=== PATIENT | female | born 1970 | race Caucasian/White ===

== ENCOUNTER 2020-12-21 14:57 | Emergency (ER) | payer SELFPAY ==
--- OUTSIDE RECORDS SUMMARY | 2020-12-21 15:02 | XMS REPORT | Continuity of Care Document ---
:1970 Author Organization [facility] t Address [facility] Memo Rojas. [address] [place] [address] Care Team Providers Name Role Phone Charlie Whaley MD Primary Care Physician Kaelyn HARDY, S Attending Clinician Melissa Jones MD Attending Clinician Problems Condition Condition Condition Status Onset Resolution Last Treating Co mments Source Name Details Category Date Date Treatment Clinician Date Cataract, Cataract, Disease Active [facility] Allergies, Adverse Reactions, Alerts Allergy Allergy Status Severity Reaction(s) Onset Inactive Treating Comm ents Source Name Type Date Date Clinician Jesus Palomino Active Anaphylaxis, [facility] ne-Pseud ty to Palpitations 09-14 Juana kes - oephedri adverse , Other (See 00:00: M vane ne reaction Comments) 00 Madhu nguyễn s Social History Social Habit Start Date Stop Date Quantity Comments Source Sex Assigned At [facility] Tobacco use and 2018-04-11 2018-04-11 Never used [facility] - exposure 00:00:00 00:00:00 [facility] Alcohol intake 2018-04-11 2018-04-11 [facility] non-drinker of Medical Ce nter alcohol (finding) History of 2004-09-04 Current smoker [facility] es - tobacco use 00:00:00 Medical Madhu nguyễn Smoking Status Start Date Stop Date Source Former smoker 2018-04-11 00:00:00 2018-04-11 00:00:[address] [facility] Medications Ordered Filled Start Stop Current Ordering Indication Dosage Frequency Signature Comments Components Source Medication Medication Date Date Medication? Clinician (SIG) Name Name fexofenadin Yes 180mg QD Take [address] (CATY) 8-08 mg by [facility] - 180 MG 10:44: mouth Medical tablet 18 daily. Center DULoxetine Yes 20mg QD Take [address] (CYMBALTA) 8-08 by mouth [facility] - 20 MG 10:44: daily. Medical capsule 18 Center oxyCODONE-a Yes 1{tbl} Take [address] cetaminophe 8-08 tablet by [facility] es - n 10:44: mouth Medical (PERCOCET) 18 every 4 Center 5-325 mg (four) per tablet hours as needed for Pain. estradiol Yes 1mg QD Take [address] [address] (ESTRACE) 1 8-08 by mouth [facility] - MG tablet 10:44: daily. Medica l 18 Center omeprazole Yes 10mg QD Take [address] (PRILOSEC) 8-08 by [facility] - 10 MG 10:44: daily. Medical capsule 18 Center zolpidem Yes 10mg Take [address] (AMBIEN) 10 8-08 by mouth [facility] - mg tablet 10:44: every Medical 18 night as Center needed for Insomnia. acetaminoph Yes 500mg Take [address] en 8-08 mg by [facility] - (TYLENOL) 10:44: mouth Medical 500 MG 18 every 6 Center tablet (six) hours as needed for Pain. Procedures This patient has no known procedures. Plan of Care Planned Activity Planned Date Details Comments Source Future Scheduled 2020-05-[address] [facility] - Test 00:00:00 (#1) [code = [facility] INFLUENZA VACCINE (#1)] Future Scheduled 2018-09-[address] [facility] - Test 00:00:00 WELLNESS (YEAR 2 or Medical Center FIRST YEAR if no IPPE) [code = MEDICARE ANNUAL WELLNESS (YEAR 2 or FIRST YEAR if no IPPE)] Future Scheduled [address] [facility] Test 00:00:00 (procedure) [code = Medical Center 63164268] Future Scheduled [address] [facility] - Test 00:00:00 malignant neoplasm Medical C enter of cervix (procedure) [code = 448419224] Future Scheduled [address] [facility] - Test 00:00:00 malignant neoplasm Medical C enter of breast (procedure) [code = 099316848] Future Scheduled [address] [facility] - Test 00:00:00 malignant neoplasm Medical C enter of colon (procedure) [code = 956293072] Encounters Start End Encounter Admission Attending Care Care Encounter Source Date/Time Date/Time Type Type Clinicians Facility Department ID 2020-12-08 2020-12-08 Jenn ArtRUST [id number] 00:00:00 00:00:00 [facility] [id number] Surgical [id number] Specialti [id number] es [address] 2020-07-21 2020-07-21 [facility] [id number] 00:00:00 00:00:00 [facility] [id number] Surgical [id number] Specialti [id number] [address] 2020-06-19 2020-06-19 Jenn ArtRUST [id number] 00:00:00 00:00:00 [facility] [id number] Surgical [id number] Specialti [id number] es [address] 2020-05-20 2020-05-20 Jenn ArtRUST [id number] 00:00:00 00:00:00 [facility] [id number] Surgical [id number] Specialti [id number] es [address] 2020-04-22 2020-04-22 Jenn ArtRUST [id number] 00:00:00 00:00:00 [facility] [id number] Surgical [id number] Specialti [id number] es [address] 2020-03-18 2020-03-18 Jenn ArtRUST [id number] 00:00:00 00:00:00 [facility] [id number] Surgical [id number] Specialti [id number] es [address] 2020-02-17 2020-02-17 Jenn ArtRUST [id number] 00:00:00 00:00:00 [facility] [id number] Surgical [id number] Specialti [id number] es [address] 2020-01-20 2020-01-20 Jenn ArtRUST [id number] 00:00:00 00:00:00 [facility] [id number] Surgical [id number] Specialti [id number] es [address] 2019-12-20 2019-12-20 [facility] [id number] 00:00:00 00:00:00 [facility] [id number] Surgical [id number] Specialti [id number] es [address] 2019-11-19 2019-11-19 Jenn ArtRUST [id number] 00:00:00 00:00:00 [facility] [id number] Surgical [id number] Specialti [id number] es [address] 2019-10-23 2019-10-23 [facility] [id number] 00:00:00 00:00:00 [facility] [id number] Surgical [id number] Specialti [id number] es [address] 2019-10-09 2019-10-09 [facility] KarenRUST [id number] 15:12:43 16:01:03 [facility] [id number] Surgical [id number] Specialti [phone] [address] Results This patient has no known results.
--- NOTE | 2020-12-21 19:16 | ER ---
Nurse's Notes [facility] Name: Hui Maxwell Age: 50 yrs Sex: Female : 1970 Arrival Date: 12/21/2020 Time: 15:03 Bed Waiting Private MD: Mike Whaley T Diagnosis: Presentation: 12/21 15:09 Chief complaint: Patient states: 2nd covid shot received 12/12/20. 12/14 started to have ll1 severe lethargy, fever of 101, body aches since 12/14. Chest and back started hurting Monday, hurts more on L side. No cough. Coronavirus screen: Client denies travel out of the [place] in the last 14 days. fatigue, fever, headache, muscle pain, nausea, shaking with chills, shortness of breath, Client presents with at least one sign or symptom that may indicate coronavirus-19. Standard/surgical mask placed on the client. Ebola Screen: Patient denies travel to an Ebola-affected area in the 21 days before illness onset. Initial Sepsis Screen: Does the patient meet any 2 criteria? No. Patient's initial sepsis screen is negative. Does the patient have a suspected source of infection? No. Patient's initial sepsis screen is negative. Risk Assessment: Do you want to hurt yourself or someone else? Patient reports no desire to harm self or others. Onset of symptoms was December 14, 2020. 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 - Social history:: Smoking status: Patient denies any tobacco usage or history of. Vital Signs: 15:09 BP 151 / 96; Pulse 63; Resp 17; Temp 99.3; Pulse Ox 100% ; Weight 94.8 kg; Height 5 ft. ll1 7 in. (170.18 cm); Pain 5/10; 15:09 Body Mass Index 32.73 (94.80 kg, 170.18 cm) ll1 ED Course: 15:03 Patient arrived in ED. mr 15:04 Mike Whaley MD is Private Physician. mr 15:13 Triage completed. 1 15:14 Arm band placed on. 1 Administered Medications: No medications were administered Outcome: 19:15 Patient left the ED. 1 Signatures: Ericka Urbina mr Raysa Morin, RN RN [facility]
[2020-12-21 19:23] VITALS: BP 151/96; TEMP 99.3; O2SAT 100
== END 2020-12-21 19:15 | disposition left against medical advice (07) ==
LOC: ER 14:57
DX: Z53.21 Procedure and treatment not carried out due to patient leaving prior to being seen by health care provider (principal)
CPT/HCPCS: 99281

== ENCOUNTER 2021-12-11 15:36 | Emergency (ER) | payer OTHER ==
--- OUTSIDE RECORDS SUMMARY | 2021-12-11 15:41 | XMS REPORT | Continuity of Care Document ---
:1970 Author Organization [facility] t Address [address] [place] [address] Dr. Rojas. [address] [place] [address] Care Team Providers Name Role Phone Charlie Whaley Primary Care Physician Kaelyn HARDY, S Attending Clinician Doctor Unassigned, Name Attending Clinician Unavailable Karen HOROWITZ, L Attending Clinician Payers Payer Name Policy Type Policy Number Effective Date Expiration Date S ource [employer] MEDICARE ADV [id number] 2018 00:00:00 Problems Condition Condition Condition Status Onset Resolution Last Treating Co mments Source Name Details Category Date Date Treatment Clinician Date Obesity Obesity Disease Active 2018-09 Univers (BMI (BMI 0-07 ity of 30-39.9) 30-39.9) 00:00: [place] 00 Medical Branch Status Status Disease Active 2018-09 Univers post total post total 0-07 it y of [place] right t of right 00 Me dical hip hip Branch Primary Primary Disease Active Overview: Univ ers osteoarthr osteoarthr 05-23 [place] ity of itis of itis of 00:00: g of this [place] right hip right hip 00 note Medi kimberly might be Branch different from the original. Added automatic ally from request for surgery [id number] Allergies, Adverse Reactions, Alerts Allergy Allergy Status Severity Reaction(s) Onset Inactive Treating Comm ents Source Name Type Date Date Clinician LORATADI DRUG Active High Anaphylaxis Uni vers NE-PSEUD -11 ity of OEPHEDRI 00:00: [place] 00 Medical Branch Loratadi Propensi Active Palpitations Univers ne-Pseud ty to 09-14 ity of oephedri adverse 00:00: [place] ne reaction 00 Medical s Branch Social History Social Habit Start Date Stop Date Quantity Comments Source History SDIA University o f Alcohol Std [place] [facility] Drinks Branch History SDIA University o f Alcohol Binge [place] [facility] al Branch History [facility] University o f Alcohol Comment [place] [facility] ical Branch Alcohol intake 2019-10-09 2019-10-09 Lifetime University of 00:00:00 00:00:00 non-drinker [place] [facility] (finding) Branch Tobacco use and 2019-06-06 2019-06-06 Never used Universit y of exposure 00:00:00 00:00:00 [place] [facility] History SDOH 2019-06-06 2019-06-06 1 University o f Alcohol Frequency 00:00:00 00:00:00 [facility] edical [place] Sex Assigned At [birth year] Universit y of 00:00:00 00:00:00 [facility] Smoking Status Start Date Stop Date Source Never smoker [facility] Medical Branch Medications Ordered Filled Start Stop Current Ordering Indication Dosage Frequency Signature Comments Components Source Medication Medication Date Date Medication? Clinician (SIG) Name Name DICLOFENAC Yes [id number] TAKE ONE Univers 75 mg EC - (1) ity of tablet 00:00: TABLET(S) 00 BY MOUTH Medical TWICE A Branch DAY WITH FOOD. DICLOFENAC 2020-09 Yes [id number] TAKE ONE Univers 75 mg EC -14 (1) ity of tablet 00:00: TABLET(S) 00 BY MOUTH Medical TWICE A Branch DAY WITH FOOD. DICLOFENAC 2020-09- No [id number] TAKE ONE Univers 75 mg EC 2-14 09-14 (1) ity of tablet 00:00: 00:00 TABLET(S) [place] 00 :00 BY MOUTH Medical TWICE A Branch DAY WITH FOOD. DICLOFENAC 2020-09 Yes [id number] TAKE ONE Univers 75 mg EC - (1) ity of tablet 00:00: TABLET(S) [place] 00 BY MOUTH Medical TWICE A Branch DAY WITH FOOD. DICLOFENAC 2020-09- No [id number] TAKE ONE Univers 75 mg EC 1-10 12-14 [id number] (1) ity of tablet 00:00: 00:00 TABLET(S) [place] 00 :00 BY MOUTH Medical TWICE A Branch DAY WITH FOOD. DICLOFENAC 2020-09 Yes [id number] TAKE ONE Univers 75 mg EC 0-07 [id number] (1) ity of tablet 00:00: TABLET(S) [place] 00 BY MOUTH Medical TWICE A Branch DAY WITH FOOD. DICLOFENAC 2020-09- No [id number] TAKE ONE Univers 75 mg EC 0-07 11-10 00013 (1) ity of tablet 00:00: 00:00 TABLET(S) [place] 00 :00 BY MOUTH Medical TWICE A Branch DAY WITH FOOD. DICLOFENAC Yes [id number] TAKE ONE Univers 75 mg EC 9-10 [id number] (1) ity of tablet 00:00: TABLET(S) [place] 00 BY MOUTH Medical TWICE A Branch DAY WITH FOOD. DICLOFENAC Yes [id number] TAKE ONE Univers 75 mg EC 9-10 [id number] (1) ity of tablet 00:00: TABLET(S) [place] 00 BY MOUTH Medical TWICE A Branch DAY WITH FOOD. DICLOFENAC 2020- No [id number] TAKE ONE Univers 75 mg EC 9-10 10-07 [id number] (1) ity of tablet 00:00: 00:00 TABLET(S) [place] 00 :00 BY MOUTH Medical TWICE A Branch DAY WITH FOOD. DICLOFENAC 2020- No [id number] TAKE ONE Univers 75 mg EC 8-12 09-10 [id number] (1) ity of tablet 00:00: 00:00 TABLET(S) [place] 00 :00 BY MOUTH Medical TWICE A Branch DAY WITH FOOD. HYDROcodone 2020-0 Yes Univer s -acetaminop 1-29 ity of hen 10-325 00:00: [place] mg tablet 00 Medical Branch HYDROcodone 2020-0 Yes Univer s -acetaminop 1-29 ity of hen 10-325 00:00: [place] mg tablet 00 Medical Branch HYDROcodone 2020-0 Yes Univer s -acetaminop 1-29 ity of hen 10-325 00:00: [place] mg tablet 00 Medical Branch HYDROcodone 2020-0 Yes Univer s -acetaminop 1-29 ity of hen 10-325 00:00: [place] mg tablet 00 [facility] Branch HYDROcodone 2020-0 Yes Univer s -acetaminop 1-29 ity of hen 10-325 00:00: [place] mg tablet 00 Medical Branch HYDROcodone 2020-0 Yes Univer s -acetaminop 1-29 ity of hen 10-325 00:00: [place] mg tablet 00 Medical Branch oxyCODONE-a 2019-0 Yes Univer s cetaminophe 1-02 ity of n 7.5-325 00:00: [place] mg per 00 Medical tablet Branch oxyCODONE-a 2019-0 Yes Univer s cetaminophe 1-02 ity of n 7.5-325 00:00: [place] mg per 00 Medical tablet Branch oxyCODONE-a 2019-0 Yes Univer s cetaminophe 1-02 ity of n 7.5-325 00:00: [place] mg per 00 Medical tablet Branch oxyCODONE-a 2019-0 Yes Univer s cetaminophe 1-02 ity of n 7.5-325 00:00: [place] mg per 00 Medical tablet Branch oxyCODONE-a 2019-0 Yes Univer s cetaminophe 1-02 ity of n 7.5-325 00:00: [place] mg per 00 Medical tablet Branch oxyCODONE-a 2019-0 Yes Univer s cetaminophe 1-02 ity of n 7.5-325 00:00: [place] mg per 00 Medical tablet Branch montelukast 2018-09 Yes TAKE ONE Un yancy 10 mg 2-29 (1) ity of tablet 00:00: TABLET(S) BY MOUTH Medical EVERY Branch MORNING. montelukast 2018-09 Yes TAKE ONE Un yancy 10 mg 2-29 (1) ity of tablet 00:00: TABLET(S) BY MOUTH Medical EVERY Branch MORNING. montelukast 2018-09 Yes TAKE ONE Un yancy 10 mg 2-29 (1) ity of tablet 00:00: TABLET(S) BY MOUTH Medical EVERY Branch MORNING. montelukast 2018-09 Yes TAKE ONE Un yancy 10 mg 2-29 (1) ity of tablet 00:00: TABLET(S) BY MOUTH Medical EVERY Branch MORNING. montelukast 2018-09 Yes TAKE ONE Un yancy 10 mg 2-29 (1) ity of tablet 00:00: TABLET(S) BY MOUTH Medical EVERY Branch MORNING. montelukast 2018-09 Yes TAKE ONE Un yancy 10 mg 2-29 (1) ity of tablet 00:00: TABLET(S) BY MOUTH Medical EVERY Branch MORNING. cefUROXime 2018-09 Yes TAKE ONE Uni vers 250 mg 2-20 (1) ity of tablet 00:00: TABLET(S) BY MOUTH Medical TWICE A Branch DAY. cefUROXime 2018-09 Yes TAKE ONE Uni vers 250 mg 2-20 (1) ity of tablet 00:00: TABLET(S) BY MOUTH Medical TWICE A Branch DAY. cefUROXime 2018-09 Yes TAKE ONE Uni vers 250 mg 2-20 (1) ity of tablet 00:00: TABLET(S) BY MOUTH Medical TWICE A Branch DAY. cefUROXime 2018-09 Yes TAKE ONE Uni vers 250 mg 2-20 (1) ity of tablet 00:00: TABLET(S) BY MOUTH Medical TWICE A Branch DAY. cefUROXime 2018-09 Yes TAKE ONE Uni vers 250 mg 2-20 (1) ity of tablet 00:00: TABLET(S) BY MOUTH Medical TWICE A Branch DAY. cefUROXime 2018-09 Yes TAKE ONE Uni vers 250 mg 2-20 (1) ity of tablet 00:00: TABLET(S) BY MOUTH Medical TWICE A Branch DAY. oseltamivir 2018-09 Yes Univer s 75 mg 2-18 ity of capsule 00:00: [place] [facility] oseltamivir 2018- Yes Univer s 75 mg 2-18 ity of capsule 00:00: [place] [facility] oseltamivir 2018- Yes Univer s 75 mg 2-18 ity of capsule 00:00: [place] [facility] oseltamivir 2018- Yes Univer s 75 mg 2-18 ity of capsule 00:00: [place] [facility] oseltamivir 2018- Yes Univer s 75 mg 2-18 ity of capsule 00:00: [place] [facility] oseltamivir 2018- Yes Univer s 75 mg 2-18 ity of capsule 00:00: [place] [facility] carvediloL 2018- Yes Univers 6.25 mg 1-14 ity of tablet 00:00: [place] [facility] carvediloL 2018- Yes Univers 6.25 mg 1-14 ity of tablet 00:00: [place] 00 Medical Branch carvediloL 2018-09 Yes Univers 6.25 mg 1-14 ity of tablet 00:00: [place] [facility] carvediloL 2018-09 Yes Univers 6.25 mg 1-14 ity of tablet 00:00: [place] [facility] carvediloL 2018-09 Yes Univers 6.25 mg 1-14 ity of tablet 00:00: [place] [facility] carvediloL 2018-09 Yes Univers 6.25 mg 1-14 ity of tablet 00:00: [place] 00 Medical Branch zolpidem 10 2018-09 Yes 10mg Take 10 mg Univers mg tablet 0-23 by mouth ity of 18:16: at [place] [address] bedtime. Medical Branch zolpidem 10 2018-09 Yes 10mg Take 10 mg Univers mg tablet 0-23 by mouth ity of 13:16: at [place] [address] bedtime. Medical Branch zolpidem 10 2018-09 Yes 10mg Take 10 mg Univers mg tablet 0-23 by mouth ity of 13:16: at [place] [address] bedtime. Medical Branch zolpidem 10 2018-09 Yes 10mg Take 10 mg Univers mg tablet 0-23 by mouth ity of 13:16: at [place] [address] bedtime. Medical Branch zolpidem 10 2018-09 Yes 10mg Take 10 mg Univers mg tablet 0-23 by mouth ity of 13:16: at [place] [address] bedtime. Medical Branch zolpidem 10 2018-09 Yes 10mg Take 10 mg Univers mg tablet 0-23 by mouth ity of 13:16: at [place] [address] bedtime. Medical Branch acetaminoph 2018-09 Yes [id number] 2{tbl} Take 2 Univers en-codeine 0-08 6 tablets by ity of (TYLENOL-CO 00:00: mouth [place] DEINE #3) 00 every 4 Medical 300-30 mg (four) Branch tablet hours as needed for Pain (scale 4-6) or Pain (scale 7-10). acetaminoph 2018-09 Yes [id number] 2{tbl} Take 2 Univers en-codeine 0-08 6 tablets by ity of (TYLENOL-CO 00:00: mouth [place] DEINE #3) 00 every 4 Medical 300-30 mg (four) Branch tablet hours as needed for Pain (scale 4-6) or Pain (scale 7-10). acetaminoph 2018-09 Yes [id number] 2{tbl} Take 2 Univers en-codeine 0-08 6 tablets by ity of (TYLENOL-CO 00:00: mouth [place] DEINE #3) 00 every 4 Medical 300-30 mg (four) Branch tablet hours as needed for Pain (scale 4-6) or Pain (scale 7-10). acetaminoph 2018-09 Yes [id number] 2{tbl} Take 2 Univers en-codeine 0-08 6 tablets by ity of (TYLENOL-CO 00:00: mouth [place] DEINE #3) 00 every 4 Medical 300-30 mg (four) Branch tablet hours as needed for Pain (scale 4-6) or Pain (scale 7-10). acetaminoph 2018-09 Yes [id number] 2{tbl} Take 2 Univers en-codeine 0-08 6 tablets by ity of (TYLENOL-CO 00:00: mouth [place] DEINE #3) 00 every 4 Medical 300-30 mg (four) Branch tablet hours as needed for Pain (scale 4-6) or Pain (scale 7-10). acetaminoph 2018-09 Yes [id number] 2{tbl} Take 2 Univers en-codeine 0-08 6 tablets by ity of (TYLENOL-CO 00:00: mouth [place] DEINE #3) 00 every 4 Medical 300-30 mg (four) Branch tablet hours as needed for Pain (scale 4-6) or Pain (scale 7-10). omeprazole 2019-0 Yes 40mg Take 40 mg U nivers 40 mg 9-23 by mouth ity of capsule 00:00: daily. [address] omeprazole 2019-0 Yes 40mg Take 40 mg U nivers 40 mg 9-23 by mouth ity of capsule 00:00: daily. [address] omeprazole 2019-0 Yes 40mg Take 40 mg U nivers 40 mg 9-23 by mouth ity of capsule 00:00: daily. [address] omeprazole 2019-0 Yes 40mg Take 40 mg U nivers 40 mg 9-23 by mouth ity of capsule 00:00: daily. [address] omeprazole 2019-0 Yes 40mg Take 40 mg U nivers 40 mg 9-23 by mouth ity of capsule 00:00: daily. [place] 00 Medical Branch omeprazole 2019-0 Yes 40mg Take 40 mg U nivers 40 mg 9-23 by mouth ity of capsule 00:00: daily. [place] [facility] carvedilol 2019-0 Yes 12.5mg Take 12.5 Univers 12.5 mg 9-11 mg by ity of tablet 00:00: mouth 2 [place] (two) Medical times Branch daily. carvedilol 2019-0 Yes 12.5mg Take 12.5 Univers 12.5 mg 9-11 mg by ity of tablet 00:00: mouth 2 [place] (two) Medical times Branch daily. carvedilol 2019-0 Yes 12.5mg Take 12.5 Univers 12.5 mg 9-11 mg by ity of tablet 00:00: mouth 2 [place] (two) Medical times Branch daily. carvedilol 2019-0 Yes 12.5mg Take 12.5 Univers 12.5 mg 9-11 mg by ity of tablet 00:00: mouth 2 [place] (two) Medical times Branch daily. carvedilol 2019-0 Yes 12.5mg Take 12.5 Univers 12.5 mg 9-11 mg by ity of tablet 00:00: mouth 2 [place] (two) Medical times Branch daily. carvedilol 2019-0 Yes 12.5mg Take 12.5 Univers 12.5 mg 9-11 mg by ity of tablet 00:00: mouth 2 [place] (two) Medical times Branch daily. DULoxetine 2019-0 Yes 30mg Take 30 mg U nivers 30 mg 9-06 by mouth 2 ity of capsule 00:00: (two) [place] times Medical daily. Branch DULoxetine 2019-0 Yes 30mg Take 30 mg U nivers 30 mg 9-06 by mouth 2 ity of capsule 00:00: (two) [place] times Medical daily. Branch DULoxetine 2019-0 Yes 30mg Take 30 mg U nivers 30 mg 9-06 by mouth 2 ity of capsule 00:00: (two) [place] times Medical daily. Branch DULoxetine 2019-0 Yes 30mg Take 30 mg U nivers 30 mg 9-06 by mouth 2 ity of capsule 00:00: (two) [place] times Medical daily. Branch DULoxetine 2019-0 Yes 30mg Take 30 mg U nivers 30 mg 9-06 by mouth 2 ity of capsule 00:00: (two) [place] 00 times Medical daily. Branch DULoxetine 2019-0 Yes 30mg Take 30 mg U nivers 30 mg 9-06 by mouth 2 ity of capsule 00:00: (two) [place] 00 times Medical daily. Branch Immunizations Ordered Filled Immunization Date Status Comments [facility] e Immunization Name Name SARS-COV-2 COVID-19 2020-12-12 Completed Unive rsity of PFIZER VACCINE 00:00:00 [facility] SARS-COV-2 COVID-19 2020-12-12 Completed Unive rsity of PFIZER VACCINE 00:00:00 [facility] SARS-COV-2 COVID-19 2020-12-12 Completed Unive rsity of PFIZER VACCINE 00:00:00 [facility] SARS-COV-2 COVID-19 2020-12-12 Completed Unive rsity of PFIZER VACCINE 00:00:00 [facility] SARS-COV-2 COVID-19 2020-12-12 Completed Unive rsity of PFIZER VACCINE 00:00:00 [facility] SARS-COV-2 COVID-19 2020-12-12 Completed Unive rsity of PFIZER VACCINE 00:00:00 [facility] SARS-COV-2 COVID-19 2020-11-21 Completed Unive rsity of PFIZER VACCINE 00:00:00 [facility] SARS-COV-2 COVID-19 2020-11-21 Completed Unive rsity of PFIZER VACCINE 00:00:00 [facility] SARS-COV-2 COVID-19 2020-11-21 Completed Unive rsity of PFIZER VACCINE 00:00:00 [facility] SARS-COV-2 COVID-19 2020-11-21 Completed Unive rsity of PFIZER VACCINE 00:00:00 [facility] SARS-COV-2 COVID-19 2020-11-21 Completed Unive rsity of PFIZER VACCINE 00:00:00 [facility] SARS-COV-2 COVID-19 2020-11-21 Completed Unive rsity of PFIZER VACCINE 00:00:00 [facility] Procedures Procedure Date / Time Performing Clinician Source Performed MEDICATION CORRESPONDENCE 2021-05-31 05:01:00 Doctor Unassigned, [facility] [place] Medical Branch Encounters Start End Encounter Admission Attending Care Care Encounter Source Date/Time Date/Time Type Type Clinicians Facility Department ID 2021-09-14 2021-09-14 [facility] 1.2.840.114 [id number] Univers 00:00:00 00:00:00 [place] 350.1.13.10 it y of SURGICAL 4.2.7.2.686 Terry as SPECIALTI [id number] [place] dical ES 198 [facility] 2021-08-11 2021-08-11 [facility] 1.2.840.114 [id number] Univers 00:00:00 00:00:00 [place] 350.1.13.10 it y of SURGICAL 4.2.7.2.686 Terry as SPECIALTI [id number] [place] dical ES 198 [facility] 2021-07-11 2021-07-11 [facility] 1.2.840.114 [id number] Univers 00:00:00 00:00:00 [facility] [place] 350.1.13.10 it y of SURGICAL 4.2.7.2.686 Terry as SPECIALTI [id number] [place] dical ES 198 [facility] 2021-06-10 2021-06-10 [facility] 1.2.840.114 [id number] Univers 00:00:00 00:00:00 [facility] 350.1.13.10 it y of Surgical 4.2.7.2.686 Terry as Specialti [phone] [place] dical es 198 [facility] 2021-05-31 2021-05-31 Orders Doctor YASSINE 1.2.840.114 [id number] Univers 00:00:00 00:00:00 Only Unassigned, FELIC[place] 350.1.13.10 ity of [place] [facility] 4.2.7.2.686 Terry as [id number] [address] 2021-05-13 2021-05-13 [facility] 1.2.840.114 [id number] Univers 00:00:00 00:00:00 [facility] 350.1.13.10 it y of Surgical 4.2.7.2.686 Terry as Specialti [phone] [place] dical es 198 [facility] 2020-12-12 2020-12-12 Outpatient [facility] [id number] Univers 13:45:00 13:45:00 [facility] 2020-12-08 2020-12-08 [facility] 1.2.840.114 [id number] 00:00:00 00:00:00 [facility] 350.1.13.10 Surgical 4.2.7.2.686 Specialti [id number] es 198 [place] 2020-11-21 2020-11-21 Outpatient [facility] [id number] Univers 13:35:00 13:35:00 [place] [facility] 2020-07-21 2020-07-21 [facility] 1.2.840.114 [id number] 00:00:00 00:00:00 [facility] 350.1.13.10 Surgical 4.2.7.2.686 Specialti [id number] es 198 [place] 2020-06-19 2020-06-19 [facility] 1.2.840.114 [id number] 00:00:00 00:00:00 [facility] 350.1.13.10 Surgical 4.2.7.2.686 Specialti [id number] es 198 [place] 2020-05-20 2020-05-20 [facility]irsushila [facility] 1.2.840.114 [id number] 00:00:00 00:00:00 [facility] 350.1.13.10 Surgical 4.2.7.2.686 Specialti [id number] es 198 [place] 2020-04-22 2020-04-22 [facility] 1.2.840.114 [id number] 00:00:00 00:00:00 [facility] 350.1.13.10 Surgical 4.2.7.2.686 Specialti [id number] es 198 [place] 2020-03-18 2020-03-18 [facility] 1.2.840.114 [id number] 00:00:00 00:00:00 [facility] 350.1.13.10 Surgical 4.2.7.2.686 Specialti [id number] es 198 [place] 2020-02-17 2020-02-17 [facility] 1.2.840.114 [id number] 00:00:00 00:00:00 [facility] Health 350.1.13.10 Surgical 4.2.7.2.686 Specialti [id number] es 198 [place] 2020-01-20 2020-01-20 [facility] 1.2.840.114 [id number] 00:00:00 00:00:00 [facility] Health 350.1.13.10 Surgical 4.2.7.2.686 Specialti [id number] es 198 [place] 2019-12-20 2019-12-20 [facility] 1.2.840.114 [id number] 00:00:00 00:00:00 [facility] Health 350.1.13.10 Surgical 4.2.7.2.686 Specialti [id number] es 198 [place] 2019-11-19 2019-11-19 [facility] 1.2.840.114 [id number] 00:00:00 00:00:00 [facility] Health 350.1.13.10 Surgical 4.2.7.2.686 Specialti [id number] es 198 [place] 2019-10-23 2019-10-23 [facility] [id number] 00:00:00 00:00:00 [facility] 350.1.13.10 Surgical 4.2.7.2.686 Specialti [phone] es 198 [place] 2019-10-09 2019-10-09 [facility] [id number] 15:12:43 16:01:03 Visit [facility] Health 350.1.13.10 Surgical 4.2.7.2.686 Specialti [id number] es 198 [place] Results This patient has no known results.
[2021-12-11] MEDS ORDERED: MECLIZINE HCL 12.5 MG TAB ONE (16:32)
[2021-12-11] MEDS ORDERED: DIAZEPAM 10 MG/2 ML INJ SYRINGE ONE ×2 (16:32→19:39)
[2021-12-11] MEDS ORDERED: ONDANSETRON 4 MG/2 ML VIAL ONE (16:32)
[2021-12-11 16:34] LABS: Absolute Lymphocytes (CBC) 1.2 K/uL (0.7-4.9); Hematocrit 38.7 % (36.0-45.0); Lymphocytes % 19.3 % (15.3-44.8); MPV 8.1 fL (7.6-11.3); RBC Red Blood Cell Count 4.45 M/uL (3.86-4.86)
[2021-12-11 16:40] LABS: Protime INR 1.06
[2021-12-11 16:55] LABS: ALT/SGPT 34 U/L (12-78); AST/SGOT 21 U/L (15-37); Albumin 3.3 g/dL (3.4-5.0); Alkaline Phosphatase 109 U/L (45-117); BUN Blood Urea Nitrogen 9 mg/dL (7-18); Bicarbonate 25 mmol/L (21-32); Bilirubin Direct 0.2 mg/dL (0-0.2); Bilirubin Total 0.5 mg/dL (0.2-1.0); Glucose Level 94 mg/dL (74-106); Magnesium 1.9 mg/dL (1.8-2.4); NT PRO-BNP 321 pg/mL (<125); Potassium 3.7 mmol/L (3.5-5.1); Protein, Total 6.8 g/dL (6.4-8.2); Sodium Level 141 mmol/L (136-145); Troponin High Sensitivity 4.1 pg/mL (<58.9)
--- NOTE | 2021-12-11 17:06 | RAD REPORT ---
EXAM DESCRIPTION: Vickie Single View12/11/2021 4:44 pm CLINICAL HISTORY: Dizziness COMPARISON: 2016 FINDINGS: The lungs appear clear of acute infiltrate. The heart is normal size IMPRESSION: No acute abnormalities displayed
--- NOTE | 2021-12-11 18:07 | RAD REPORT ---
EXAM DESCRIPTION: CT - Head Brain Wo Cont - 12/11/2021 5:46 pm CLINICAL HISTORY: Headache COMPARISON: 2017 TECHNIQUE: Computed axial tomography of the head was obtained. IV contrast was not requested. All CT scans are performed using dose optimization technique as appropriate and may include automated exposure control or mA/KV adjustment according to patient size. FINDINGS: An intracranial bleed is not seen . The ventricles are normal in caliber. No significant hypodense areas within the brain No extra-axial fluid collection is noted. Fluid within the sinuses/ mastoids is not seen. Postsurgical changes left mastoid IMPRESSION: No acute intracranial abnormality is seen. If patient's symptoms persist MRI of the bra in would be recommended.
[2021-12-11] MEDS ORDERED: NA CHLORIDE 0.9% 1,000 ML ONE (19:36)
--- NOTE | 2021-12-11 20:00 | ER ---
Nurse's Notes [facility] Name: Hui Maxwell Age: 51 yrs Sex: Female : 1970 Arrival Date: 12/11/2021 Time: 15:41 Bed 5 Private MD: Diagnosis: Other peripheral vertigo Presentation: 12/11 15:46 Chief complaint: Patient states: "I have Meniere's disease and have had it for 30 ab2 years. This is the first bolivar in the last 10 years I have had a flare up this bad. I have a headache, im nauseated, my bones hurt, im dizzy.". Coronavirus screen: Vaccine status: Patient reports receiving the 2nd dose of the covid vaccine. Client denies travel out of the [place] in the last 14 days. At this time, the client does not indicate any symptoms associated with coronavirus-19. Ebola Screen: Patient negative for fever greater than or equal to 101.5 degrees Fahrenheit, and additional compatible Ebola Virus Disease symptoms Patient denies exposure to infectious person. Patient denies travel to an Ebola-affected area in the 21 days before illness onset. No symptoms or risks identified at this time. Initial Sepsis Screen: Does the patient meet any 2 criteria? No. Patient's initial sepsis screen is negative. Does the patient have a suspected source of infection? No. Patient's initial sepsis screen is negative. Risk Assessment: Do you want to hurt yourself or someone else? Patient reports no desire to harm self or others. Onset of symptoms is unknown. 15:46 Method Of Arrival: Ambulatory ab2 15:46 Acuity: CIARA 3 ab2 Triage Assessment: 15:48 Headache History: The patient has had previous headaches and this one is similar to ab2 previous episodes. General: Appears in no apparent distress. uncomfortable, Behavior is calm, cooperative, appropriate for age. Pain: Denies pain. Pain: Pain began 4 hours ago. Also complains of nausea. Neuro: Level of Consciousness is awake, alert, obeys commands, Oriented to person, place, time, situation, Appropriate for age Cheese Pancake Roller are equal bilaterally Moves all extremities. Gait is steady, Speech is normal, Reports dizziness, headache weakness. Cardiovascular: No deficits noted. Reports lightheadedness, nausea, Denies chest pain, Patient's skin is warm and dry. Respiratory: No deficits noted. Airway is patent Respiratory effort is even, unlabored, Respiratory pattern is regular, symmetrical. GI: Reports nausea. : No deficits noted. No signs and/or symptoms were reported regarding the genitourinary system. Derm: Skin is intact, Skin is pink, warm \\T\\ dry. Musculoskeletal: No deficits noted. No signs and/or symptoms reported regarding the musculoskeletal system. Historical: - Allergies: 15:46 Claritin; ab2 - PMHx: 15:46 menieres disease; non hodgkins lymphoma; ab2 - Immunization history:: Adult Immunizations up to date. - Social history:: Smoking status: Patient denies any tobacco usage or history of. Screenin:42 Abuse screen: Denies threats or abuse. Denies injuries from another. Nutritional ph screening: No deficits noted. Tuberculosis screening: No symptoms or risk factors identified. Fall Risk None identified. Assessment: 16:15 General: Appears in no apparent distress. Behavior is calm, cooperative, appropriate ph for age. Pain: Denies pain. Neuro: Level of Consciousness is awake, alert, obeys commands, Oriented to person, place, time, situation, Reports dizziness. Cardiovascular: Capillary refill < 3 seconds in bilateral fingers Patient's skin is warm and dry. Respiratory: Airway is patent Respiratory effort is even, unlabored. GI: Reports nausea, Patient currently denies abdominal pain, vomiting. Derm: Skin is intact, is healthy with good turgor, Skin is pink, warm \\T\\ dry. Musculoskeletal: Circulation, motion, and sensation intact. Range of motion: intact in all extremities. 17:30 Reassessment: Patient appears in no apparent distress at this time. Patient and/or ph family updated on plan of care and expected duration. Pain level reassessed. Patient is alert, oriented x 3, equal unlabored respirations, skin warm/dry/pink. 19:39 Reassessment: Patient appears in no apparent distress at this time. Patient and/or lg3 family updated on plan of care and expected duration. Pain level reassessed. Patient is alert, oriented x 3, equal unlabored respirations, skin warm/dry/pink. Patient states feeling better. Patient states symptoms have improved. 20:18 Reassessment: Patient appears in no apparent distress at this time. No changes from lg3 previously documented assessment. Patient and/or family updated on plan of care and expected duration. Pain level reassessed. Patient is alert, oriented x 3, equal unlabored respirations, skin warm/dry/pink. Patient states feeling better. Patient states symptoms have improved. Vital Signs: 15:46 BP 159 / 84; Pulse 68; Resp 18; Temp 97.5(TE); Pulse Ox 97% on R/A; Weight 99.34 kg; ab2 Height 5 ft. 7 in. (170.18 cm); Pain 0/10; 16:30 BP 142 / 78; Pulse 65; Resp 18; Pulse Ox 98% on R/A; ph 19:39 BP 145 / 87; Pulse 57; Resp 17 S; Pulse Ox 99% on R/A; lg3 15:46 Body Mass Index 34.30 (99.34 kg, 170.18 cm) ab2 ED Course: 15:41 Patient arrived in ED. mr 15:48 Triage completed. ab2 15:49 Arm band placed on right wrist. ab2 15:53 Sky Rogers NP is PHCP. pm1 15:53 Max Leblanc MD is Attending Physician. pm1 16:08 Jessica Galaviz, JESSIE is Primary Nurse. ph 16:15 Initial lab(s) drawn, by mt, sent to lab. Inserted saline lock: 20 gauge in right ph antecubital area, using aseptic technique. Blood collected. 16:52 XRAY Chest (1 view) In Process Unspecified. EDMS 17:47 CT Head Brain wo Cont In Process Unspecified. EDMS 18:09 Patient has correct armband on for positive identification. Bed in low position. Call ph light in reach. Side rails up X 1. Pulse ox on. NIBP on. Door closed. Noise minimized. 19:39 No provider procedures requiring assistance completed. ph 20:19 IV discontinued, intact, bleeding controlled, No redness/swelling at site. Pressure lg3 dressing applied. Administered Medications: 16:30 Drug: Meclizine 50 mg Route: PO; ph 19:38 Follow up: Response: No adverse reaction lg3 16:32 Drug: Zofran (Ondansetron) 4 mg Route: IVP; Site: right antecubital; ph 19:38 Follow up: Response: No adverse reaction lg3 16:32 Drug: Valium (diazepam) 5 mg Route: IVP; Site: right antecubital; ph 19:38 Follow up: Response: No adverse reaction lg3 19:38 Drug: Valium (diazepam) 5 mg Route: IVP; Site: right antecubital; lg3 19:38 Follow up: Response: No adverse reaction lg3 19:38 Drug: NS 0.9% 1000 ml Route: IV; Rate: 1000 ml; Site: right antecubital; lg3 20:18 Follow up: Response: No adverse reaction; IV Status: Completed infusion; IV Intake: lg3 1000ml Intake: 20:18 IV: 1000ml; Total: 1000ml. lg3 Outcome: 20:00 Discharge ordered by MD. pm1 20:19 Discharged to home ambulatory. lg3 20:19 Condition: stable 20:19 Discharge instructions given to patient, Instructed on discharge instructions, medication usage, Prescriptions given X 1. 20:19 Patient left the ED. lg3 Signatures: Dispatcher [employer] EDSC Ericka Urbina Patricia, RN RN ph Marinas, Patrick, GREGORY SOLAR INSTALLATION HELPER pm1 Najma Fountain RN RN lg3 Kenton David
--- NOTE | 2021-12-11 20:00 | EDPHYS ---
Physician Documentation [facility] Name: Hui Maxwell Age: 51 yrs Sex: Female : 1970 Arrival Date: 12/11/2021 Time: 15:41 Bed 5 Private MD: [place] Physician Max Leblanc HPI: 12/11 16:09 This 51 yrs old Female presents to ER via Ambulatory with complaints of Vertigo, pm1 Headache, Shortness Of Breath, Nausea. 16:09 The patient presents with vertigo. Onset: The symptoms/episode began/occurred this pm1 morning. Context: occurred at home, just prior to the episode the patient experienced no apparent symptoms, hx of Meniere's disease. Modifying factors: The symptoms are alleviated by holding head still, the symptoms are aggravated by movement of head, changing position. Associated signs and symptoms: Pertinent positives: headache, nausea, shortness of breath, Pertinent negatives: chest pain, focal weakness, numbness, palpitations, tingling. Severity of symptoms: in the emergency department the symptoms are unchanged. The patient has experienced similar episodes in the past, multiple times, Last severe attack about 10 years ago. The patient has not recently seen a physician. Patient reports that she has not had a severe attack of Mnire's disease in over 10 years. Patient keeps a bottle of meclizine and Dramamine by her side for this type of occasion however she could not find them today. Historical: - Allergies: 15:46 Claritin; ab2 - PMHx: 15:46 menieres disease; non hodgkins lymphoma; ab2 - Immunization history:: Adult Immunizations up to date. - Social history:: Smoking status: Patient denies any tobacco usage or history of. ROS: 16:09 Constitutional: Negative for fever, chills, and weight loss, Cardiovascular: Negative pm1 for chest pain, palpitations, and edema. 16:09 Abdomen/GI: Negative for abdominal pain, nausea, vomiting, diarrhea, and constipation, Back: Negative for injury and pain, MS/Extremity: Negative for injury and deformity, Skin: Negative for injury, rash, and discoloration. 16:09 Respiratory: Positive for shortness of breath, Negative for cough. 16:09 Neuro: Positive for headache, Vertigo, Negative for numbness, tingling, weakness. 16:09 All other systems are negative. Exam: 16:09 Constitutional: This is a well developed, well nourished patient who is awake, alert, pm1 and in no acute distress. Head/Face: Normocephalic, atraumatic. 16:09 Back: No spinal tenderness. No costovertebral tenderness. Full range of motion. Skin: Warm, dry with normal turgor. Normal color with no rashes, no lesions, and no evidence of cellulitis. MS/ Extremity: Pulses equal, no cyanosis. Neurovascular intact. Full, normal range of motion. 16:09 Eyes: Nystagmus: present with right lateral gaze and reproduces her symptoms of vertigo. 16:09 Cardiovascular: Exam negative for acute changes, Rate: normal, Rhythm: regular, Pulses: no pulse deficits are appreciated, Heart sounds: normal, normal S1and S2. 16:09 Respiratory: Exam negative for acute changes, respiratory distress, shortness of breath, Breath sounds: are clear throughout. 16:09 Abdomen/GI: Exam negative for acute changes, Inspection: abdomen appears normal, Palpation: abdomen is soft and non-tender, in all quadrants. 16:09 Neuro: Exam negative for acute changes, Orientation: is normal, Mentation: is normal, Motor: is normal, moves all fours. Vital Signs: 15:46 BP 159 / 84; Pulse 68; Resp 18; Temp 97.5(TE); Pulse Ox 97% on R/A; Weight 99.34 kg; ab2 Height 5 ft. 7 in. (170.18 cm); Pain 0/10; 16:30 BP 142 / 78; Pulse 65; Resp 18; Pulse Ox 98% on R/A; ph 19:39 BP 145 / 87; Pulse 57; Resp 17 S; Pulse Ox 99% on R/A; lg3 15:46 Body Mass Index 34.30 (99.34 kg, 170.18 cm) ab2 MDM: 15:54 Patient medically screened. liu 17:33 Data reviewed: vital signs. Data interpreted: Pulse oximetry: on room air is 97 %. pm1 Interpretation: normal. 19:55 Counseling: I had a detailed discussion with the patient and/or guardian regarding: the pm1 historical points, exam findings, and any diagnostic results supporting the discharge/admit diagnosis, lab results, radiology results, the need for outpatient follow up, to return to the emergency department if symptoms worsen or persist or if there are any questions or concerns that arise at home. 12/11 16:06 Order name: Basic Metabolic Panel; Complete Time: 16:55 pm1 12/11 16:06 Order name: CBC with Diff; Complete Time: 16:53 pm1 12/11 16:06 Order name: LFT's; Complete Time: 16:55 pm1 12/11 16:06 Order name: Magnesium; Complete Time: 16:55 pm1 12/11 16:06 Order name: NT PRO-BNP; Complete Time: 16:55 pm1 12/11 16:06 Order name: PT-INR; Complete Time: 16:53 pm1 12/11 16:06 Order name: Troponin HS; Complete Time: 16:55 pm1 12/11 16:06 Order name: XRAY Chest (1 view); Complete Time: 17:10 pm1 12/11 17:11 Order name: CT Head Brain wo Cont; Complete Time: 18:13 pm1 12/11 16:06 Order name: EKG; Complete Time: 16:07 pm1 12/11 16:06 Order name: Cardiac monitoring; Complete Time: 18:08 pm1 12/11 16:06 Order name: EKG - Nurse/Tech; Complete Time: 19:39 pm1 12/11 16:06 Order name: IV Saline Lock; Complete Time: 18:08 pm1 12/11 16:06 Order name: Labs collected and sent; Complete Time: 18:08 pm1 12/11 16:06 Order name: O2 Per Protocol; Complete Time: 18:08 pm1 12/11 16:06 Order name: O2 Sat Monitoring; Complete Time: 18:08 pm1 Administered Medications: 16:30 Drug: Meclizine 50 mg Route: PO; ph 19:38 Follow up: Response: No adverse reaction lg3 16:32 Drug: Zofran (Ondansetron) 4 mg Route: IVP; Site: right antecubital; ph 19:38 Follow up: Response: No adverse reaction lg3 16:32 Drug: Valium (diazepam) 5 mg Route: IVP; Site: right antecubital; ph 19:38 Follow up: Response: No adverse reaction lg3 19:38 Drug: Valium (diazepam) 5 mg Route: IVP; Site: right antecubital; lg3 19:38 Follow up: Response: No adverse reaction lg3 19:38 Drug: NS 0.9% 1000 ml Route: IV; Rate: 1000 ml; Site: right antecubital; lg3 20:18 Follow up: Response: No adverse reaction; IV Status: Completed infusion; IV Intake: lg3 1000ml Disposition Summary: 12/11/21 20:00 Discharge Ordered Location: Home pm1 Problem: new pm1 Symptoms: have improved pm1 Condition: Stable pm1 Diagnosis - Other peripheral vertigo pm1 Followup: pm1 - With: Emergency Department - When: As needed - Reason: Worsening of condition Followup: pm1 - With: Private Physician - When: 2 - 3 days - Reason: Recheck today's complaints, Continuance of care, Re-evaluation by your physician Discharge Instructions: - Discharge Summary Sheet pm1 - Vertigo pm1 Forms: - Medication Reconciliation Form pm1 - Thank You Letter pm1 - Antibiotic Education pm1 - Prescription Opioid Use pm1 Prescriptions: - Meclizine 25 mg Oral Tablet - take 1 tablet by ORAL route every 8 hours As needed; 30 tablet; Refills: 0, pm1 Product Selection Permitted Addendum: 12/16/2021 18:32 Co-signature as Attending Physician, Max Leblanc MD I agree with the assessment and c kenney plan of care. Signatures: Dispatcher [employer] Max Singh MD MD cha Hall, Patricia, RN RN Sky Balderas, GREGORY WELDING MACHINE OPERATOR ARC pm1 Najma Fountain RN RN lg3 Kenton David Sophia, PA PA sb3
[2021-12-11 21:08] VITALS: TEMP 97.5
[2021-12-11 21:11] VITALS: BP 145/87; O2SAT 99
--- NOTE | 2021-12-13 09:41 | EKG ---
Test Date: 2021-12-11 Test Time: 19:24:18 Child Welfare Worker: MEASUREMENT RESULTS: Intervals: Rate: 57 OR: 170 QRSD: 92 QT: 406 QTc: 395 [place]: P: 55 OR: 170 QRS: 59 T: 38 INTERPRETIVE STATEMENTS: Sinus bradycardia Nonspecific T wave abnormality Abnormal ECG Compared to ECG 11/16/2015 13:25:07 T-wave abnormality now present Sinus rhythm no longer present Electronically Signed On 12-13-21 09:35:58 CDT by Car Dempsey
== END 2021-12-11 20:19 | disposition home or self-care (01) ==
LOC: ER 15:36
DX: H81.399 Other peripheral vertigo, unspecified ear (principal); H81.09 Meniere's disease, unspecified ear; C85.90 Non-Hodgkin lymphoma, unspecified, unspecified site
CPT/HCPCS: 96361; 93005; 85025; 80048; 36415; 83735; 85610; 80076; 84484; 83880; 70450; 71045; 96375; 96374; 99284; J8597; J3360 ×2; J7030; J2405